=== PATIENT | female | born 1965 | race Caucasian/White ===

== ENCOUNTER 2020-04-10 14:22 | Inpatient (IN) | payer MEDICARE, OTHER ==
--- NOTE | 2020-04-10 15:43 | ED ---
General Adult HPI - General Chief complaint: Shortness of Breath Stated complaint: SOB,Sent by for pulmonary embolism Time Seen by Provider: 04/10/20 15:29 Source: patient Mode of arrival: ambulatory Limitations: no limitations - History of Present Illness Initial comments: Dictation was produced using [employer] dictation software. please excuse any grammatical, word or spelling errors. This patient was cared for during a federal and state declared state of emergency secondary to Covid 19 Chief Complaint: 54-year-old female sent by her primary care physician for abnormal chest x-ray History of Present Illness: Is 54-year-old female she has past medical history of breast cancer in remission, COPD and diabetes. Patient states she went to her primary care physician Dr. Bishop today for a routine checkup. Patient was complaining of shortness of breath however Dr. Young ordered a chest x- ray. X-ray was found to show complete opacification of the left hemithorax according to the patient. She was instructed to come to the emergency department. Patient states she's been short of breath for the last 2 months. She has no history of pleural effusions. She denies any cough. She states that she does feel more short of breath especially with exertion. The ROS documented in this emergency department record has been reviewed and confirmed by me. Those systems with pertinent positive or negative responses have been documented in the HPI. All other systems are other negative and/or noncontributory. PHYSICAL EXAM: General Impression: Alert and oriented x3, not in acute distress HEENT: Normocephalic atraumatic, extra-ocular movements intact, pupils equal and reactive to light bilaterally, mucous membranes moist. Cardiovascular: Heart regular rate and rhythm Chest: Able to complete full sentences, no retractions, no tachypnea, nondistended, no breath sounds on the left Abdomen: abdomen soft, non-tender, non-distended, no organomegaly Musculoskeletal: Pulses present and equal in all extremities, no peripheral edema Motor: no focal deficits noted Neurological: CN II-XII grossly intact, no focal motor or sensory deficits noted Skin: Intact with no visualized rashes Psych: Normal affect and mood ED course: 84-year-old feel presents with what sounds like chronic dyspnea on exertion and pleural effusion of the left hemithorax. Signs upon arrival are within acceptable limits. Patient has a history of breast cancer. There is concern of malignant pleural effusion. She has not had any cancer treatment in several years. Laboratory evaluation obtained. CBC is unremarkable. Coag panel is negative. Metabolic panel shows potassium 5.4 with slight hemolysis. Rest metabolic panel is negative. Chest x-ray shows large left pleural effusion. This is likely chronic considering patient is not in respiratory distress. Patient be admitted. Discussed patient case with Dr. Ruiz who is willing to accept patients care for some physician group. Pulmonology consulted for evaluation and likely diagnostic thoracentesis. EKG interpretation: Ventricular rate 106, sinus tachycardia, IN interval 142, QRS 86, QTC 435. No IN prolongation, no QTC prolongation, no ST or T-wave changes noted. Overall, this EKG is unremarkable - Related Data Allergies Allergy/AdvReac Type Severity Reaction Status Date / Time No Known Allergies Allergy Verified 04/10/20 14:55 Review of Systems ROS Statement: Those systems with pertinent positive or pertinent negative responses have been documented in the HPI. ROS Other: All systems not noted in ROS Statement are negative. Past Medical History Past Medical History: COPD, Diabetes Mellitus Additional Past Medical History / Comment(s): lymphedema, breast cancer History of Any Multi-Drug Resistant Organisms: None Reported Additional Past Surgical History / Comment(s): alicia masectomy Past Psychological History: No Psychological Hx Reported Smoking Status: Former smoker Past Alcohol Use History: None Reported Past Drug Use History: Marijuana General Exam Limitations: no limitations Course Vital Signs 04/10/20 04/10/20 14:50 16:08 Temperature 99.2 F Pulse Rate 109 H Respiratory 22 20 Rate Blood Pressure 170/77 O2 Sat by Pulse 93 L Oximetry Medical Decision Making - Lab Data Result diagrams: 04/10/20 15:55 04/10/20 15:55 Lab Results 04/10/20 04/10/20 04/10/20 Range/Units 15:55 15:55 15:55 WBC 10.6 (3.8-10.6) k/uL RBC 4.18 (3.80-5.40) m/uL Hgb 11.7 (11.4-16.0) gm/dL Hct 36.5 (34.0-46.0) % MCV 87.4 (80.0-100.0) fL MCH 28.0 (25.0-35.0) pg MCHC 32.0 (31.0-37.0) g/dL RDW 13.1 (11.5-15.5) % Plt Count 329 (150-450) k/uL Neutrophils % 73 % Lymphocytes % 16 % Monocytes % 7 % Eosinophils % 2 % Basophils % 0 % Neutrophils # 7.8 H (1.3-7.7) k/uL Lymphocytes # 1.7 (1.0-4.8) k/uL Monocytes # 0.8 (0-1.0) k/uL Eosinophils # 0.2 (0-0.7) k/uL Basophils # 0.0 (0-0.2) k/uL Hypochromasia Moderate PT 9.7 (9.0-12.0) sec INR 0.9 (<1.2) APTT 22.0 (22.0-30.0) sec Sodium 132 L (137-145) mmol/L Potassium 5.4 H (3.5-5.1) mmol/L Chloride 102 (98-107) mmol/L Carbon Dioxide 22 (22-30) mmol/L Anion Gap 8 mmol/L BUN 12 (7-17) mg/dL Creatinine 0.57 (0.52-1.04) mg/dL Est GFR (CKD-EPI)AfAm >90 (>60 ml/min/1.73 sqM) Est GFR (CKD-EPI)NonAf >90 (>60 ml/min/1.73 sqM) Glucose 158 H (74-99) mg/dL Calcium 9.7 (8.4-10.2) mg/dL Total Bilirubin 0.8 (0.2-1.3) mg/dL AST 30 (14-36) U/L ALT 19 (4-34) U/L Alkaline Phosphatase 84 (38-126) U/L Total Protein 7.5 (6.3-8.2) g/dL Albumin 3.8 (3.5-5.0) g/dL Disposition Clinical Impression: Pleural effusion Disposition: ADMITTED IP TO THIS HOSP Condition: Fair Referrals: Wendy Bishop MD [Primary Care Provider] - 1-2 days Decision Time: 17:16
--- NOTE | 2020-04-10 16:17 | XR ---
EXAMINATION TYPE: XR chest 2V DATE OF EXAM: 04/10/2020 COMPARISON: Prior chest x-ray 02/16/2010 HISTORY: Dyspnea TECHNIQUE: Frontal and lateral views of the chest are obtained. FINDINGS: This been interval near complete opacification of the left hemithorax. Patient is rotated. No evident pneumothorax. Heart is obscured. IMPRESSION: Large left effusion, follow-up recommended to exclude underlying mass.
[2020-04-10 16:21] LABS: Basophils % (A) 0 %; Eosinophils # (A) 0.2 k/uL (0-0.7); Eosinophils % (A) 2 %; HCT 36.5 % (34.0-46.0); HGB 11.7 gm/dL (11.4-16.0); Hypochromasia Moderate; Lymphocytes # (A) 1.7 k/uL (1.0-4.8); Lymphocytes % (A) 16 %; MCV 87.4 fL (80.0-100.0); Mean Platelet Volume 8.8; Monocytes # (A) 0.8 k/uL (0-1.0); Monocytes % (A) 7 %; Neutrophils # (A) 7.8 k/uL (1.3-7.7); Neutrophils % (A) 73 %; Platelet Count 329 k/uL (150-450); RBC 4.18 m/uL (3.80-5.40); RDW 13.1 % (11.5-15.5); WBC 10.6 k/uL (3.8-10.6)
[2020-04-10 16:35] LABS: INR 0.9 (<1.2); Prothrombin Time 9.7 sec (9.0-12.0)
[2020-04-10 16:45] LABS: ALT 19 U/L (4-34); AST 30 U/L (14-36); African American GFR (CKD) >90 (>60 ml/min/1.73 sqM); Albumin 3.8 g/dL (3.5-5.0); Alkaline Phosphatase 84 U/L (38-126); Anion Gap 8 mmol/L; Blood Urea Nitrogen 12 mg/dL (7-17); Calcium 9.7 mg/dL (8.4-10.2); Carbon Dioxide 22 mmol/L (22-30); Chloride 102 mmol/L (98-107); Glucose 158 mg/dL (74-99); Non-African American GFR(CKD) >90 (>60 ml/min/1.73 sqM); Potassium 5.4 mmol/L (3.5-5.1); Sodium 132 mmol/L (137-145); Total Bilirubin 0.8 mg/dL (0.2-1.3); Total Protein 7.5 g/dL (6.3-8.2)
[2020-04-10] MEDS ORDERED: NALOXONE 0.4 MG/ML 1 ML VIAL IV PRN (17:17)
[2020-04-10] MEDS: ACETAMINOPHEN TAB 325 MG TAB PO PRN (18:02)
[2020-04-10] MEDS ORDERED: IPRATROPIUM-ALBUTEROL 3 ML NEB INHALATION PRN (19:16)
--- NOTE | 2020-04-10 19:19 | P.HPIM ---
History of Present Illness H&P Date: 04/10/20 Chief Complaint: Shortness of breath 54-year-old female with PMH of COPD, depression, diabetes mellitus, hypertension, history of breast cancer in 2007 with bilateral masectomy and left lymphectomy presents the shortness of breath. Patient reports shortness of breath is progressively getting worse over the past 2 months. Patient initially thought this was related to COPD exacerbation. She went to go see her PCP ordered a chest x-ray which showed white out of the left lung. This prompted patient to come to the ED. Patient reports seeing her oncologist 8 months ago. Patient reports a history of smoking but quit in 2007 after her diagnosis of breast cancer. She denies any headache, lower extremity edema, nausea or vomiting, fever or chills, cough, chest pain, palpitations, changes in urination or bowel habits. No changes in appetite or weight. She denies any dizziness, numbness/weakness testing of the extremities. In the ED, she was tachycardic with a pulse of 107 with O2 saturation of 90% on room air. CBC was benign. Coagulation panel was negative. CMP showed sodium 132, potassium of 5.4 and glucose of 158. Chest x-ray showed large left effusion. Patient is admitted for pleural effusion with pulmonology on consult. Review of Systems Pertinent positives and negatives as discussed in HPI, a complete review of systems was performed and all other systems are negative. Past Medical History Past Medical History: COPD, Diabetes Mellitus Additional Past Medical History / Comment(s): lymphedema, breast cancer History of Any Multi-Drug Resistant Organisms: None Reported Additional Past Surgical History / Comment(s): alicia masectomy Past Psychological History: No Psychological Hx Reported Smoking Status: Former smoker Past Alcohol Use History: None Reported Past Drug Use History: Marijuana Medications and Allergies Home Medications Medication Instructions Recorded Confirmed Type Albuterol Sulfate [Ventolin HFA] 2 puff INHALATION RT-Q4H PRN 04/10/20 04/10/20 History Atorvastatin Calcium [Lipitor] 20 mg PO HS 04/10/20 04/10/20 History Citalopram Hydrobromide [CeleXA] 20 mg PO HS 04/10/20 04/10/20 History Diazepam [Valium] 5 mg PO HS PRN 04/10/20 04/10/20 History Ergocalciferol (Vitamin D2) 50,000 unit PO MAXWELL 04/10/20 04/10/20 History [Drisdol] Insulin Detemir (Levemir) [Levemir] 85 unit SQ HS 04/10/20 04/10/20 History Ipratropium/Albuter 20-100Mcg 1 puff INHALATION RT-QID PRN 04/10/20 04/10/20 History [Combivent Respimat 20-100Mcg Inhaler] Lisinopril [Prinivil] 10 mg PO HS 04/10/20 04/10/20 History Naproxen [Naprosyn] 500 mg PO BID PRN 04/10/20 04/10/20 History Nystatin 100,000 Unit/gm Oint 1 applic TOPICAL TID PRN 04/10/20 04/10/20 History [Mycostatin Oint] Omeprazole 20 mg PO HS 04/10/20 04/10/20 History Triamcinolone 0.1% Cream [Kenalog 1 applicatio TOPICAL TID PRN 04/10/20 04/10/20 History 0.1% Cream] metFORMIN HCL [Glucophage] 1,000 mg PO BID-W/MEALS 04/10/20 04/10/20 History Allergies Allergy/AdvReac Type Severity Reaction Status Date / Time No Known Allergies Allergy Verified 04/10/20 17:51 Physical Exam Vitals: Vital Signs Temp Pulse Resp BP Pulse Ox 04/10/20 18:00 106 H 22 121/71 93 L 04/10/20 17:00 107 H 23 125/65 90 L 04/10/20 16:08 20 04/10/20 16:00 101 H 20 118/77 93 L 04/10/20 15:58 12 92 L 04/10/20 14:50 99.2 F 109 H 22 170/77 93 L Intake and Output 04/10/20 04/10/20 04/10/20 06:59 14:59 22:59 Other: Weight 132.903 kg General: [non toxic], [no distress], [appears at stated age] Derm: [warm], [dry] Head: [atraumatic], [normocephalic], [symmetric] Eyes: [EOMI], [no lid lag], [anicteric sclera] Mouth: [no lip lesion], [mucus membranes moist] Cardiovascular: [S1S2 reg], [tachycardic], [positive DP pulse bilateral], Lungs: [Decreased BS L side], [no rhonchi, no rales] , [no accessory muscle use] Abdominal: [soft], [ nontender to palpation], [no guarding], [no appreciable organomegaly] Ext: [no gross muscle atrophy], [no edema], [no contractures] Neuro: [ CN II-XI grossly intact], [no focal neuro deficits] Psych: [Alert], [oriented], [appropriate affect] Results CBC & Chem 7: 04/10/20 15:55 04/10/20 15:55 Labs: Abnormal Lab Results - Last 24 Hours (Table) 04/10/20 04/10/20 Range/Units 15:55 15:55 Neutrophils # 7.8 H (1.3-7.7) k/uL Sodium 132 L (137-145) mmol/L Potassium 5.4 H (3.5-5.1) mmol/L Glucose 158 H (74-99) mg/dL Assessment and Plan Assessment: Acute hypoxic respiratory failure likely related to left large pleural effusion Hyperkalemia Stable COPD History of breast cancer Diabetes mellitus Hypertension Chest x-ray shows large left-sided pleural effusion. Given her history of breast cancer, concerning for recurrence. Plans to consult pulmonology for thoracentesis. Supplemental O2 per NC to maintain O2 saturation greater than 92%. Telemetry monitoring. Her potassium is 5.4. Hemolyzed specimen. Plans to repeat BMP tomorrow zac thompson. Hold lisinopril. Stable. DuoNeb as needed for shortness of breath or wheezing. Patient follows up with oncology in the outpatient setting. Point of care glucose 158. Start insulin sliding scale. Regular Accu-Cheks. Hypoglycemic precautions. BP 121/71. Monitor vitals, adjust medications as necessary. DVT prophylaxis: [Heparin] Discussed with: [Patient] Anticipated discharge: [2 days] Anticipated discharge place: [home] A total of [35] minutes was spent on the care of this complex patient more than 50% of the time was spent in counseling and care coordination. Decision maker = Boom (son) Patient would like to be FULL CODE.
[2020-04-10] MEDS ORDERED: lisinopriL 10 MG TAB PO SCH (21:00)
[2020-04-10 21:09] LABS: Glucose,Whole Blood 151 mg/dL (75-99)
[2020-04-10] MEDS: PANTOPRAZOLE 40 MG TABLET PO SCH (21:40)
[2020-04-10] MEDS: CITALOPRAM HYDROBROMIDE 20 MG TAB PO SCH (21:40)
[2020-04-10] MEDS: ATORVASTATIN 20 MG TAB PO SCH (21:40)
[2020-04-10] MEDS: INSULIN ASPART (NovoLOG) 100 UNIT/ML VIAL SQ SCH (21:40)
[2020-04-10] MEDS: HEPARIN SODIUM,PORCINE 5,000 UNIT/ML 1 ML VIAL SQ SCH (21:40)
[2020-04-10] MEDS: SODIUM CHLORIDE 0.9% 1,000 ML IV SCH (21:41)
[2020-04-11] MEDS: diazePAM 5 MG TAB PO PRN ×2 (01:44→21:10)
[2020-04-11 07:20] LABS: Glucose,Whole Blood 195 mg/dL (75-99)
[2020-04-11] MEDS: INSULIN ASPART (NovoLOG) 100 UNIT/ML VIAL SQ SCH ×4 (07:45→21:22)
[2020-04-11 08:16] LABS: African American GFR (CKD) >90 (>60 ml/min/1.73 sqM); Anion Gap 7 mmol/L; Blood Urea Nitrogen 9 mg/dL (7-17); Carbon Dioxide 26 mmol/L (22-30); Chloride 102 mmol/L (98-107); Glucose 183 mg/dL (74-99); Non-African American GFR(CKD) >90 (>60 ml/min/1.73 sqM); Potassium 5.1 mmol/L (3.5-5.1); Sodium 135 mmol/L (137-145)
[2020-04-11] MEDS: HEPARIN SODIUM,PORCINE 5,000 UNIT/ML 1 ML VIAL SQ SCH ×2 (10:43→21:09)
--- NOTE | 2020-04-11 11:01 | ECHOF ---
Referral Reason:pleural effusion MEASUREMENTS -------- HEIGHT: 177.8 cm WEIGHT: 132.9 kg BP: IVSd: 1.4 cm (0.6 - 1.1) LVIDd: 3.7 cm (3.9 - 5.3) LVPWd: 1.5 cm (0.6 - 1.1) IVSs: 2.1 cm LVIDs: 1.0 cm LVPWs: 1.3 cm Ao Diam: 2.4 cm (2.0 - 3.7) AV Cusp: 1.5 cm (1.5 - 2.6) LA Diam: 3.1 cm (2.7 - 3.8) MV EXCURSION: 12.364 mm (> 18.000) MV EF SLOPE: 42 mm/s (70 - 150) EPSS: 0.9 cm MV E Kunal: 1.05 m/s MV DecT: 129 ms MV A Kunal: 1.45 m/s MV E/A Ratio: 0.73 RAP: 15.00 mmHg RVSP: 20.99 mmHg FINDINGS -------- Resting tachycardia (HR>100bpm). This was a technically difficult study with suboptimal views. Poor apicals. Study taken from [facility]. The left ventricular size is normal. There is moderate concentric left ventricular hypertrophy. O verall left ventricular systolic function is normal with, an EF between 60 - 65 %. The right ventricle is normal in size. The left atrial size is normal. The right atrial size is normal. Interatrial and interventricular septum intact. The aortic valve is trileaflet and appears structurally normal. The mitral valve is normal. There is trace mitral regurgitation. The tricuspid valve appears structurally normal. Mild tricuspid regurgitation present. Right vent ricular systolic pressure is normal at < 35 mmHg. There is no pulmonic regurgitation present. The aortic root size is normal. The inferior vena cava is mildly dilated. There is no pericardial effusion. CONCLUSIONS -------- 1. There is moderate concentric left ventricular hypertrophy. 2. Overall left ventricular systolic function is normal with, an EF between 60 - 65 %. 3. There is trace mitral regurgitation. 4. Mild tricuspid regurgitation present. LEAD ELECTRICAL ENGINEER: Tameka Yeager RDCS
[2020-04-11 11:29] LABS: Glucose,Whole Blood 199 mg/dL (75-99)
--- NOTE | 2020-04-11 11:40 | US ---
EXAMINATION TYPE: US chest DATE OF EXAM: 04/11/2020 COMPARISON: X ray CLINICAL HISTORY: left pleural effusion. TECHNIQUE: Targeted ultrasound of the posterior bilateral chest. EXAM MEASUREMENTS: Right Pleural Effusion pocket size: no fluid seen Left Pleural Effusion pocket size: 13.5 cm A/P Left skin surface to fluid distance: 5.9 cm Left side was marked for possible thoracentesis outside the dept. Pulmonologists are able to review the images in the patient?s EMR. IMPRESSIONS: Left pleural effusion
--- NOTE | 2020-04-11 14:45 | P.PCN ---
Date of Procedure: 04/11/20 Preoperative Diagnosis: left pleural effusion Procedure(s) Performed: thoracentesis Anesthesia: local Estimated Blood Loss (ml): 4 Pathology: other (2.3 liters christy fluid)
--- NOTE | 2020-04-11 15:17 | XR ---
EXAMINATION TYPE: XR chest 2V DATE OF EXAM: 04/11/2020 CLINICAL HISTORY: Status post left thoracentesis TECHNIQUE: Frontal and lateral views of the chest are obtained. COMPARISON: Chest regressed 04/10/2020 FINDINGS: There is mild interval decrease of large volume left pleural effusion and near complete opa cification of the left hemithorax. Mildly improved aeration of the left upper lung. No mediastinal sh ift. No pneumothorax. IMPRESSION: No pneumothorax status post left thoracentesis. Large volume residual left pleural effusi on.
[2020-04-11] MEDS: ACETAMINOPHEN TAB 325 MG TAB PO PRN (15:40)
--- NOTE | 2020-04-11 15:48 | P.PN ---
Subjective Progress Note Date: 04/11/20 Principal diagnosis: Left pleural effusion Patient was seen and examined. No acute events overnight. Patient reports no changes in her condition since admission. She continues to complain of shortness of breath. She denies any chest pain or palpitations. No nausea or vomiting. No fever or chills. Objective - Vital Signs Vital signs: Vital Signs Temp 99.6 F 04/11/20 15:34 Pulse 99 04/11/20 15:34 Resp 29 H 04/11/20 15:34 BP 103/72 04/11/20 15:34 Pulse Ox 93 L 04/11/20 15:34 Intake & Output 04/10/20 04/11/20 04/11/20 18:59 06:59 18:59 Weight 132.903 kg 132.903 kg Other: Voiding Method Toilet # Voids 1 3 - Exam General: [non toxic], [no distress], [appears at stated age] Derm: [warm], [dry] Head: [atraumatic], [normocephalic], [symmetric] Eyes: [EOMI], [no lid lag], [anicteric sclera] Mouth: [no lip lesion], [mucus membranes moist] Cardiovascular: [S1S2 reg], [tachycardic], [positive DP pulse bilateral], Lungs: [Decreased BS L side], [no rhonchi, no rales] , [no accessory muscle use] Abdominal: [soft], [ nontender to palpation], [no guarding], [no appreciable organomegaly] Ext: [no gross muscle atrophy], [no edema], [no contractures] Neuro: [no focal neuro deficits] Psych: [Alert], [oriented], [appropriate affect] - Labs CBC & Chem 7: 04/10/20 15:55 04/11/20 06:54 Labs: Abnormal Lab Results - Last 24 Hours (Table) 04/10/20 04/10/20 04/10/20 Range/Units 15:55 15:55 21:08 Neutrophils # 7.8 H (1.3-7.7) k/uL Sodium 132 L (137-145) mmol/L Potassium 5.4 H (3.5-5.1) mmol/L Glucose 158 H (74-99) mg/dL POC Glucose (mg/dL) 151 H (75-99) mg/dL 04/11/20 04/11/20 04/11/20 Range/Units 06:54 07:19 11:28 Neutrophils # (1.3-7.7) k/uL Sodium 135 L (137-145) mmol/L Potassium (3.5-5.1) mmol/L Glucose 183 H (74-99) mg/dL POC Glucose (mg/dL) 195 H 199 H (75-99) mg/dL Assessment and Plan Assessment: Acute hypoxic respiratory failure likely related to left large pleural effusion Stable COPD History of breast cancer Diabetes mellitus Hypertension Morbid Obesity Resolved: Hyperkalemia Chest x-ray shows large left-sided pleural effusion. Given her history of breast cancer, concerning for recurrence. Echocardiogram shows EF 60-65% with moderate concentric LVH. Pulmonology consulted, recommends IR consult for thoracentesis. Send pleural fluid for cytology and culture. Supplemental O2 per NC to maintain O2 saturation greater than 92%. Telemetry monitoring. Stable. DuoNeb as needed for shortness of breath or wheezing. Patient follows up with oncology in the outpatient setting. Point of care glucose 199. Start insulin sliding scale. Regular Accu-Cheks. Hypoglycemic precautions. BP 103/72. Monitor vitals, adjust medications as necessary. BMI 42. Patient would benefit from a structured weight loss program. [Patient admitted for left large pleural effusion. Pulmonology recommends IR consultation for thoracentesis. Send pleural fluid for cytology and culture. Patient is pending clinical improvement. Likely DC in 1-2 days.] Decision maker = Boom (son) Patient would like to be FULL CODE.
--- NOTE | 2020-04-11 16:15 | US ---
EXAMINATION TYPE: US thoracentesis DATE OF EXAM: 04/11/2020 COMPARISON: NONE HISTORY: Pleural effusion. FINDINGS: Maximal barrier technique was utilized. The skin overlying a suitable pocket of fluid was localized and the overlying skin prepped and draped. Lidocaine was used for local anesthesia. Ultras ound was used with sterile technique. A 5 Armenian catheter over guide needle was advanced into the pl eural fluid collection using ultrasound guidance and the catheter advanced, needle removed. Approxim ately 2.3 liter(s) of christy fluid was removed. Catheter was withdrawn and hemostasis achieved. Ther e is no immediate complication. The patient discharged in stable condition without complication. IMPRESSION: STATUS POST ULTRASOUND GUIDED THORACENTESIS, POST PROCEDURE CHEST X-RAY PENDING. THIS RI OCEDURE WAS PERFORMED BY THE UNDERSIGNED.
[2020-04-11 16:25] LABS: Glucose,Whole Blood 203 mg/dL (75-99)
--- NOTE | 2020-04-11 17:02 | CONS ---
CONSULTATION PULMONARY/CRITICAL CARE CONSULTATION: DATE OF SERVICE: 04/11/2020 This is a 54-year-old female whom we were asked to see in consultation for shortness of breath and an abnormal chest x-ray which apparently showed complete opacification of the left hemithorax with a large pleural effusion. This patient apparently sees Dr. Bishop as her primary. She has a history of breast cancer, apparently in remission, as well as COPD from smoking and diabetes. She went to her primary doctor for evaluation. She was short of breath and Dr. Bishop ordered a chest x-ray which apparently was found to show complete opacification of the left hemithorax. Ultrasound- guided thoracentesis was recommended. We were asked to see her. Because of her body habitus, I believe it might be safer for [facility] to do her thoracentesis, given the fact that they can have ultrasound there at the bedside and they have longer insertion needles into the left pleural space. She has not been feeling well and has been short of breath for at least 2 months, getting progressively worse. She denies a previous history of that. Other than the shortness of breath, she really denies any other complaints. She denies any chest pain, chest pressure, fever, chills, cough, phlegm production, GI or complaints. HOME MEDICATIONS: Her home medications include omeprazole, vitamin D2, albuterol inhaler, Kenalog cream, nystatin, metformin, naproxen, lisinopril, insulin, diazepam, Combivent inhaler, citalopram and Lipitor. She is also on Qvar. She does not see a band tier for her COPD. ALLERGIES: DENIED. MEDICAL HISTORY: Her medical history is apparently positive for breast cancer, COPD, diabetes. She also has history of lymphedema involving the left upper extremity and the diagnosis of breast cancer. SURGICAL HISTORY: Surgical history includes bilateral mastectomy. SOCIAL HISTORY: Positive for previous tobacco use. She does not smoke currently. She denies any alcohol use. She does smoke marijuana. FAMILY HISTORY: Noncontributory. Both mother and father were healthy. REVIEW OF SYSTEMS: CONSTITUTIONAL: Negative. NEUROLOGIC: Negative. HEENT: Negative. CARDIOVASCULAR: Negative. PULMONARY: Shortness of breath for more than 2 months, progressive in nature. GI: Negative. : Negative. RHEUMATOLOGIC: Negative. IMMUNOLOGIC: Negative. ENDOCRINOLOGIC: Negative. DERMATOLOGIC: Negative. PHYSICAL EXAMINATION: VITAL SIGNS: Current vital signs are reviewed. Temperature is 98.6, heart rate 100, respiratory rate 18, blood pressure 118/75, mean 89, room-air saturation 95%. GENERAL APPEARANCE: She appears in no acute distress. HEENT: Examination is grossly unremarkable. NECK: Supple. Full range of motion. No adenopathy. Neck veins are flat. CARDIOVASCULAR: Examination reveals regular rhythm and rate. Heart rate about 100 beats per minute. She appears to be in sinus rhythm. No murmur. LUNGS: Lungs reveal complete absence of breath sounds in the left chest. There is dullness at the left chest. The right chest is clear. No wheezes, rhonchi or crackles on the right side. ABDOMEN: Obese. Bowel sounds are heard. EXTREMITIES: Intact. No edema. SKIN: Without rash. NEUROLOGIC: Neurologic examination is brief but nonfocal. LABS: Reviewed. White count 10.6, hemoglobin 11.7, hematocrit 36.5, platelet count 329,000. PT and INR and PTT all normal. Sodium 135, potassium 5.1, chloride 102, CO2 26. Anion gap is 7. BUN and creatinine were 9 and 0.59. The rest of the labs look okay. Microbiology is pending. Chest x-ray shows near-complete opacification of the left chest. There may be an underlying mass. Chest ultrasound shows a large 13.5 cm pocket of fluid in the left chest. Dr. Galindo from [facility] did a thoracentesis and removed 2.3 L from the left pleural space. It was sent for analysis, including cytology, chemistry and microbiology. Current medications are reviewed and include basic IV, Protonix, Narcan, DuoNeb, insulin, subcutaneous heparin, Valium, citalopram, Lipitor and Tylenol. ASSESSMENT: 1. Left-sided pleural effusion, present for at least a couple of months and maybe longer. Rule out occult malignancy. Prime etiologies would include lung and breast cancer. 2. History of chronic obstructive pulmonary disease, currently on Combivent and Qvar. 3. Obesity. 4. Diabetes. 5. History of breast cancer, status post bilateral mastectomy and left-sided lymph node dissection. PLAN: Currently, the patient has had thoracentesis by Dr. Galindo in [facility], who removed 2.3 L of fluid. It was sent for analysis, including cytology, chemistry and microbiology. Additional recommendations and suggestions are forthcoming. Should a mass be present, a follow-up CT scan might be in order. No additional recommendations are made. Will continue to follow. Prognosis is guarded. MMODL / IJN: [id number] /
[2020-04-11] MEDS: SODIUM CHLORIDE 0.9% 1,000 ML IV SCH (17:11)
[2020-04-11 20:15] LABS: Appearance,BF Cloudy; Color,BF Orange; Nucleated Cells, Body Fluid 775 /uL
[2020-04-11 20:16] LABS: RBC, Body Fluid 9875 /uL
[2020-04-11 20:53] LABS: Mononuclear WBC,Body Fluid 88 %; Polynuclear WBC,Body Fluid 12 %
[2020-04-11] MEDS: CITALOPRAM HYDROBROMIDE 20 MG TAB PO SCH (21:10)
[2020-04-11] MEDS: PANTOPRAZOLE 40 MG TABLET PO SCH (21:10)
[2020-04-11] MEDS: ATORVASTATIN 20 MG TAB PO SCH (21:10)
[2020-04-11 21:14] LABS: Glucose,Whole Blood 222 mg/dL (75-99)
[2020-04-12 03:46] LABS: Glucose, BF Source Pleural Fluid; Glucose, Body Fluid 148 mg/dL; LDH, Body Fluid Source Pleural Fluid
[2020-04-12 07:21] LABS: Glucose,Whole Blood 186 mg/dL (75-99)
[2020-04-12 07:25] LABS: Basophils % (A) 0 %; Eosinophils # (A) 0.1 k/uL (0-0.7); Eosinophils % (A) 1 %; HGB 11.7 gm/dL (11.4-16.0); Hypochromasia Moderate; Lymphocytes # (A) 1.9 k/uL (1.0-4.8); Lymphocytes % (A) 24 %; MCH 27.9 pg (25.0-35.0); MCHC 31.6 g/dL (31.0-37.0); MCV 88.2 fL (80.0-100.0); Mean Platelet Volume 8.6; Monocytes # (A) 0.6 k/uL (0-1.0); Monocytes % (A) 8 %; Neutrophils # (A) 5.2 k/uL (1.3-7.7); Neutrophils % (A) 65 %; Platelet Count 321 k/uL (150-450); RDW 13.2 % (11.5-15.5); WBC 7.9 k/uL (3.8-10.6)
[2020-04-12 07:34] VITALS: BP 128/80; RESP 18; TEMP 99.2
[2020-04-12 07:37] LABS: African American GFR (CKD) >90 (>60 ml/min/1.73 sqM); Anion Gap 7 mmol/L; Blood Urea Nitrogen 10 mg/dL (7-17); Calcium 9.8 mg/dL (8.4-10.2); Carbon Dioxide 26 mmol/L (22-30); Chloride 101 mmol/L (98-107); Glucose 183 mg/dL (74-99); Non-African American GFR(CKD) >90 (>60 ml/min/1.73 sqM); Sodium 134 mmol/L (137-145)
[2020-04-12] MEDS: INSULIN ASPART (NovoLOG) 100 UNIT/ML VIAL SQ SCH ×2 (08:59→12:31)
[2020-04-12] MEDS: HEPARIN SODIUM,PORCINE 5,000 UNIT/ML 1 ML VIAL SQ SCH (09:03)
[2020-04-12 11:31] LABS: Glucose,Whole Blood 177 mg/dL (75-99)
--- NOTE | 2020-04-12 11:52 | P.PN ---
Subjective Progress Note Date: 04/12/20 Principal diagnosis: Large left-sided pleural effusion status post left thoracentesis with removal of 2.3 L of pleural fluid On 04/12/2020 patient seen in follow-up on a general medical surgical floor, she is status post left sided thoracentesis by interventional radiology and r emoval of 2.3 L of fluid, which is exudative in nature, cytology is pending, cultures pending, Gram stain showed no organisms. Suspect malignant etiology based on the pleural fluid analysis. Patient states she is definitely breathing easier today, room air pulse ox is 94%, hemodynamically she is stable, low-grade fever, with a temp of 99.2F, no cough or congestion, breathing appears to be comfortable, follow-up chest x-ray was obtained yesterday following the procedure showing no pneumothorax status post left thoracentesis, and large volume residual left pleural effusion. Patient will likely need a repeat left- sided thoracentesis in the next several days, otherwise she has remained clini leann stable, she is on room air, today's labs have been reviewed, CBC is within normal limits, sodium is 134, the rest of the electrolytes and renal profile are unremarkable. Objective - Vital Signs Vital signs: Vital Signs Temp 99.2 F 04/12/20 07:32 Pulse 99 04/12/20 08:00 Resp 18 04/12/20 08:00 BP 128/80 04/12/20 07:32 Pulse Ox 94 L 04/12/20 07:32 Intake & Output 04/11/20 04/12/20 04/12/20 18:59 06:59 18:59 Other: Voiding Method Toilet Toilet # Voids 3 - Exam GENERAL EXAM: Alert, very pleasant, 54-year-old white female on room air, with pulse ox of 94% comfortable in no apparent distress. HEAD: Normocephalic/atraumatic. EYES: Normal reaction of pupils, equal size. Conjunctiva pink, sclera white. NOSE: Clear with pink turbinates. THROAT: No erythema or exudates. NECK: No masses, no JVD, no thyroid enlargement, no adenopathy. CHEST: No chest wall deformity. Symmetrical expansion. LUNGS: Diminished breath sounds over left lower and left middle lobe with no crackles, wheeze, rhonchi or dullness. CVS: Regular rate and rhythm, normal S1 and S2, no gallops, no murmurs, no rubs ABDOMEN: Soft, nontender. No hepatosplenomegaly, normal bowel sounds, no guarding or rigidity. EXTREMITIES: No clubbing, no edema, no cyanosis, 2+ pulses and upper and lower extremities. MUSCULOSKELETAL: Muscle strength and tone normal. SPINE: No scoliosis or deformity SKIN: No rashes CENTRAL NERVOUS SYSTEM: Alert and oriented -3. No focal deficits, tone is normal in all 4 extremities. PSYCHIATRIC: Alert and oriented -3. Appropriate affect. Intact judgment and insight. - Labs CBC & Chem 7: 04/12/20 06:49 04/12/20 06:44 Labs: Abnormal Lab Results - Last 24 Hours (Table) 04/11/20 04/11/20 04/12/20 Range/Units 16:23 21:13 06:44 Sodium 134 L (137-145) mmol/L Glucose 183 H (74-99) mg/dL POC Glucose (mg/dL) 203 H 222 H (75-99) mg/dL 04/12/20 04/12/20 Range/Units 07:19 11:30 Sodium (137-145) mmol/L Glucose (74-99) mg/dL POC Glucose (mg/dL) 186 H 177 H (75-99) mg/dL Microbiology - Last 24 Hours (Table) 04/11/20 14:30 Gram Stain - Preliminary Pleural Fluid Body Fluid Culture - Preliminary 04/11/20 14:30 Anaerobic Culture - Preliminary Pleural Fluid 04/11/20 14:30 Acid Fast Bacilli Culture - Preliminary Pleural Fluid 04/11/20 14:30 Fungal Culture - Preliminary Pleural Fluid Assessment and Plan Plan: Assessment: #1. Large left-sided pleural effusion, present for at least a couple of months, rule out occult malignancy, with possible etiologies including lung and breast cancer, status post left-sided thoracentesis on 04/11/2020 and removal of 2.3 L of pleural fluid, which was exudative in nature, not suspicious for infectious etiology, awaiting cytology results #2. Residual large left-sided pleural effusion, will need close follow-up and we'll schedule the patient for outpatient left-sided thoracentesis by interventional radiology #3. History of chronic obstructive pulmonary disease, obtained on Combivent and Qvar #4. History of breast cancer, status post bilateral mastectomy and left-sided lymph node dissection #5. Morbid obesity #6. Diabetes Plan: Patient is still has a large residual left-sided pleural effusion, she had a large amount of fluid removed yesterday from the left lung in the order of 2.3 L, which is exudative in nature not suspicious for infectious etiology, suspect malignant etiology. Cytology is pending. Breathing has improved, patient is on room air, she will need close outpatient follow-up, and we wrote a order for outpatient ultrasound-guided thoracentesis on the left side on Thursday by interventional radiology, she will need to follow up with Dr. Powers in the office next week regarding the results of the left-sided thoracentesis. No acute issues overnight, vital signs are stable, increase activity as tolerated, she can considered for discharge home today with close outpatient follow-up I performed a history & physical examination of the patient and discussed their management with my nurse practitioner, Nathaly Danielle. I reviewed the nurse practitioner's note and agree with the documented findings and plan of care. Lung sounds are positive for diminished breath sounds at the left base The findings and the impression was discussed with the patient. I attest to the documentation by the nurse practitioner. Time with Patient: Less than 30
--- NOTE | 2020-04-12 12:03 | P.DS ---
Providers Date of admission: 04/10/20 17:17 Expected date of discharge: 04/12/20 Attending physician: Stalin Ruiz MD Consults: 04/10/20 15:44 Consult Physician Routine Consulting Provider: Terry Powers Consult Reason/Comments: pleural effusion Do you want consulting provider notified?: Yes Primary care physician: Wendy Bishop [facility] Hospital Course: HPI: 54-year-old female with PMH of COPD, depression, diabetes mellitus, hypertension, history of breast cancer in 2007 with bilateral masectomy and left lymphectomy presents the shortness of breath. Patient reports shortness of breath is progressively getting worse over the past 2 months. Patient initially thought this was related to COPD exacerbation. She went to go see her PCP ordered a chest x-ray which showed white out of the left lung. This prompted patient to come to the ED. Patient reports seeing her oncologist 8 months ago. Patient reports a history of smoking but quit in 2007 after her diagnosis of breast cancer. She denies any headache, lower extremity edema, nausea or vomiting, fever or chills, cough, chest pain, palpitations, changes in urination or bowel habits. No changes in appetite or weight. She denies any dizziness, numbness/weakness testing of the extremities. In the ED, she was tachycardic with a pulse of 107 with O2 saturation of 90% on room air. CBC was benign. Coagulation panel was negative. CMP showed sodium 132, potassium of 5.4 and glucose of 158. Chest x-ray showed large left effusion. Patient is admitted for pleural effusion with pulmonology on consult. hospital course and treatment: patient was admitted to the hospital with shortness of breath, she was found to haveleft-sided pleural effusion, interventional radiology and pulmonology were consulted. She underwent thoracentesis with 2.3 L of fluid removal.cytology pending. Pleural fluid likely exudate.she feels much better and breathing better. She has history of restless cancer status post bilateral mastectomy and left sided lymph node dissection. Pulmonology recommended close follow-up and repeat thoracenteses as an outpatient. Patient will be discharged home, pulmonology arranging for outpatient thoracenteses and outpatient follow-up. Diagnoses upon discharge: left-sided pleural effusion, unspecified etiology Morbid obesity history of breast cancer unspecified type Diabetes type 2 with hyperglycemia Patient Condition at Discharge: Fair Plan - Discharge Summary Discharge Rx Participant: Yes New Discharge Prescriptions: Continue Nystatin 100,000 Unit/gm Oint [Mycostatin Oint] 1 applic TOPICAL TID PRN PRN Reason: Rash metFORMIN HCL [Glucophage] 1,000 mg PO BID-W/MEALS Naproxen [Naprosyn] 500 mg PO BID PRN PRN Reason: Pain Lisinopril [Prinivil] 10 mg PO HS Insulin Detemir (Levemir) [Levemir] 85 unit SQ HS Diazepam [Valium] 5 mg PO HS PRN PRN Reason: Anxiety Ipratropium/Albuter 20-100Mcg [Combivent Respimat 20-100Mcg Inhaler] 1 puff INHALATION RT-QID PRN PRN Reason: Shortness Of Breath Citalopram Hydrobromide [CeleXA] 20 mg PO HS Atorvastatin Calcium [Lipitor] 20 mg PO HS Albuterol Sulfate [Ventolin HFA] 2 puff INHALATION RT-Q4H PRN PRN Reason: Shortness Of Breath Triamcinolone 0.1% Cream [Kenalog 0.1% Cream] 1 applicatio TOPICAL TID PRN PRN Reason: Rash Ergocalciferol (Vitamin D2) [Drisdol] 50,000 unit PO MAXWELL Omeprazole 20 mg PO HS Discharge Medication List Albuterol Sulfate [Ventolin HFA] 2 puff INHALATION RT-Q4H PRN 04/10/20 [History] Atorvastatin Calcium [Lipitor] 20 mg PO HS 04/10/20 [History] Citalopram Hydrobromide [CeleXA] 20 mg PO HS 04/10/20 [History] Diazepam [Valium] 5 mg PO HS PRN 04/10/20 [History] Ergocalciferol (Vitamin D2) [Drisdol] 50,000 unit PO MAXWELL 04/10/20 [History] Insulin Detemir (Levemir) [Levemir] 85 unit SQ HS 04/10/20 [History] Ipratropium/Albuter 20-100Mcg [Combivent Respimat 20-100Mcg Inhaler] 1 puff INHALATION RT-QID PRN 04/10/20 [History] Lisinopril [Prinivil] 10 mg PO HS 04/10/20 [History] Naproxen [Naprosyn] 500 mg PO BID PRN 04/10/20 [History] Nystatin 100,000 Unit/gm Oint [Mycostatin Oint] 1 applic TOPICAL TID PRN 04/10/20 [History] Omeprazole 20 mg PO HS 04/10/20 [History] Triamcinolone 0.1% Cream [Kenalog 0.1% Cream] 1 applicatio TOPICAL TID PRN 04/10/20 [History] metFORMIN HCL [Glucophage] 1,000 mg PO BID-W/MEALS 04/10/20 [History] Follow up Appointment(s)/Referral(s): Terry Powers DO [Doctor of Osteopathic Medicine] - 2 Weeks Wendy Bishop MD [Primary Care Provider] - 1-2 days Discharge Disposition: HOME SELF-CARE
[2020-04-12 14:02] VITALS: PULSE 94
== END 2020-04-12 13:00 | disposition home or self-care (01) | DRG 186 ==
LOC: EC 14:22 → 4SSUR 17:17
PROVIDERS: ADMIT Family Medicine; ATTEND Family Medicine
PROC: 0W9B3ZZ Drainage of Left Pleural Cavity, Percutaneous Approach (ICD-10-PCS; principal; 2020-04-11)
DX: J90 Pleural effusion, not elsewhere classified (principal); J96.01 Acute respiratory failure with hypoxia; Z68.41 Body mass index [BMI] 40.0-44.9, adult; Z11.59 Encounter for screening for other viral diseases; E66.01 Morbid (severe) obesity due to excess calories; J44.9 Chronic obstructive pulmonary disease, unspecified; Z79.4 Long term (current) use of insulin; E11.65 Type 2 diabetes mellitus with hyperglycemia; R00.0 Tachycardia, unspecified; I89.0 Lymphedema, not elsewhere classified; I10 Essential (primary) hypertension; F32.9 Major depressive disorder, single episode, unspecified; E87.5 Hyperkalemia; F41.9 Anxiety disorder, unspecified; Z79.899 Other long term (current) drug therapy; Z85.3 Personal history of malignant neoplasm of breast; Z87.891 Personal history of nicotine dependence; Z90.13 Acquired absence of bilateral breasts and nipples
CPT/HCPCS: 32555; 36415; 71046; 76604; 80048; 80053; 82945; 83615; 84157; 85025; 85610; 85730; 87070; 87075; 87102; 87116; 87205; 87206; 88108; 88305; 88341; 88342; 89050; 93005; 93306; 99285

== ENCOUNTER 2020-04-26 08:37 | Day surgery (SDC) | payer MEDICARE, OTHER ==
[2020-04-26 09:25] VITALS: TEMP 98.2
[2020-04-26 09:36] LABS: Mean Platelet Volume 8.3; Platelet Count 551 k/uL (150-450)
[2020-04-26 09:46] LABS: INR 0.9 (<1.2); Prothrombin Time 9.9 sec (9.0-12.0)
[2020-04-26 09:58] LABS: Glucose,Whole Blood 92 mg/dL (75-99)
[2020-04-26 10:47] VITALS: RESP 16
[2020-04-26 11:07] VITALS: BP 131/83; PULSE 85
--- NOTE | 2020-04-26 11:23 | XR ---
EXAMINATION TYPE: XR chest 1V DATE OF EXAM: 04/26/2020 COMPARISON: 04/11/2020 HISTORY: Post left thoracentesis TECHNIQUE: Single frontal view of the chest is obtained. FINDINGS: Large left pleural effusion and consolidation. Right lung clear. No sizable pneumothorax. Heart size stable. IMPRESSION: Large left-sided pleural effusion and consolidation with no sizable pneumothorax
--- NOTE | 2020-04-26 17:19 | US ---
EXAMINATION TYPE: US thoracentesis DATE OF EXAM: 04/26/2020 COMPARISON: NONE HISTORY: Pleural effusion. LEMON GROWER: Dr. Mai Brush PROCEDURE: The procedure was discussed with the patient. The risks, complications, benefits, and alternatives we re discussed and any questions were answered. Informed consent was obtained. Preprocedure preliminary imaging demonstrated large left pleural effusion. Maximal barrier technique was utilized. The skin overlying a suitable pocket of fluid of the left sud[address] st was localized and the overlying skin prepped and draped. Lidocaine was used for local anesthesia. Ultrasound was used with sterile technique. A 5FR 10 cm one-step centesis catheter was advanced into the pleural fluid collection using ultrasound guidance. Approximately 1.2 liter(s) of serous fluid wa s removed. Catheter was withdrawn and hemostasis achieved. A sterile bandage was applied. Postprocedure imaging demonstrated moderate residual pleural effusion. There is no immediate complica tion. The patient was discharged in stable condition without complication. IMPRESSION: 1. Status post ultrasound-guided left thoracentesis, with removal of 1.2 L of clear serous fluid. 2. Postprocedure chest x-ray pending.
== END 2020-04-26 11:30 | disposition home or self-care (01) ==
LOC: RADPROMAIN 08:37
PROVIDERS: ATTEND Internal Medicine Critical Care Medicine
DX: J90 Pleural effusion, not elsewhere classified (principal); J44.9 Chronic obstructive pulmonary disease, unspecified; E11.9 Type 2 diabetes mellitus without complications; E66.01 Morbid (severe) obesity due to excess calories; Z68.26 Body mass index [BMI] 26.0-26.9, adult; Z79.899 Other long term (current) drug therapy; Z79.51 Long term (current) use of inhaled steroids; Z85.3 Personal history of malignant neoplasm of breast; Z90.13 Acquired absence of bilateral breasts and nipples; Z98.890 Other specified postprocedural states
CPT/HCPCS: 32555; 36415; 71045; 85049; 85610

== ENCOUNTER 2020-05-16 12:29 | Day surgery (SDC) | payer MEDICARE, OTHER ==
[2020-05-16 12:57] LABS: Mean Platelet Volume 8.1; Platelet Count 372 k/uL (150-450)
[2020-05-16 12:58] VITALS: TEMP 98.4
[2020-05-16 13:03] LABS: Prothrombin Time 10.1 sec (9.0-12.0)
[2020-05-16 14:30] VITALS: RESP 16
[2020-05-16 14:43] VITALS: PULSE 85
[2020-05-16 15:05] VITALS: BP 122/87
--- NOTE | 2020-05-16 15:08 | XR ---
EXAMINATION TYPE: XR chest 1V DATE OF EXAM: 05/16/2020 CLINICAL HISTORY: Post left thoracentesis TECHNIQUE: Frontal view of the chest obtained COMPARISON: Chest radiograph 05/08/2020, 04/26/2020, 04/11/2020, 04/10/2020. FINDINGS: Persistent large left pleural effusion, mildly decreased in size versus 05/08/2020. No pneu mothorax is seen status post left thoracentesis. The cardiac silhouette is obscured due to pleural ef fusion. The visualized sternal silhouette and pulmonary vasculature are unchanged. IMPRESSION: Persistent large left pleural effusion, mildly decreased in size status post left thoracentesis. No p neumothorax.
--- NOTE | 2020-05-16 15:38 | US ---
EXAMINATION TYPE: US thoracentesis DATE OF EXAM: 05/16/2020 COMPARISON: Chest radiograph 05/08/2020. Ultrasound thoracentesis 04/26/2020. HISTORY: Left pleural effusion. MERCHANDISE FLOW TEAM LEADER: Dr. Mai Brush PROCEDURE: The procedure was discussed with the patient. The risks, complications, benefits, and alternatives we re discussed and any questions were answered. Informed consent was obtained. Preprocedure preliminary imaging demonstrated large volume left pleural effusion. Maximal barrier technique was utilized. The skin overlying a suitable pocket of fluid of the left su[address] st was localized and the overlying skin prepped and draped. Lidocaine was used for local anesthesia. Ultrasound was used with sterile technique. A 5FR 10 cm ons-step centesis catheter was advanced into the pleural fluid collection using ultrasound guidance. Approximately 1.2 liter(s) of serous fluid wa s removed. Catheter was withdrawn and hemostasis achieved. A sterile bandage was applied. Postprocedure imaging demonstrated large volume residual pleural effusion. There is no immediate comp lication. The patient was discharged in stable condition without complication. Postprocedure x-ray pe nding. IMPRESSION: 1. Status post ultrasound-guided left thoracentesis, with removal of 1.2 L of clear serous fluid. 2. Due to difficulty draining the superior aspect of the left pleural effusion and large volume resid ual fluid, recommend correlation with CT scan of the chest.
== END 2020-05-16 15:06 | disposition home or self-care (01) ==
LOC: RADPROMAIN 12:29
PROVIDERS: ATTEND Internal Medicine Critical Care Medicine
DX: J90 Pleural effusion, not elsewhere classified (principal)
CPT/HCPCS: 32555; 36415; 71045; 82947; 85049; 85610; 88108; 88305; 88341; 88342

== ENCOUNTER 2020-06-04 08:45 | Day surgery (SDC) | payer MEDICARE, OTHER ==
[2020-06-04 09:28] LABS: Mean Platelet Volume 8.1; Platelet Count 367 k/uL (150-450)
[2020-06-04 09:33] LABS: Prothrombin Time 10.3 sec (9.0-12.0)
[2020-06-04 10:13] VITALS: RESP 18; TEMP 98.1
--- NOTE | 2020-06-04 10:58 | XR ---
EXAMINATION TYPE: XR chest 1V portable DATE OF EXAM: 06/04/2020 Comparison: 05/16/2020 Clinical History: 55-year-old female post thoracentesis- pt ready in [address] please Findings: Left heart margin obscured by adjacent pleural parenchymal opacity. There is a moderate to large left pleural effusion with a adjacent opacity. Right lung and pleural space are relatively clear. Impression: Moderate to large left pleural effusion with underlying atelectasis and/or consolidation, increased s lightly from 05/16/2020. No appreciable pneumothorax.
--- NOTE | 2020-06-04 11:19 | US ---
Ultrasound-guided therapeutic and diagnostic thoracentesis DATE OF EXAM: 06/04/2020 CLINICAL HISTORY: Left pleural effusion The procedure was discussed with the patient. The risks, complications, benefits, and alternatives we re discussed and any questions were answered. Informed consent was obtained. The patient was placed supine on the ultrasound table and prepped and draped in the usual sterile fas hion. All elements of maximal barrier and sterile technique were utilized. Under ultrasound guidance, access into the pleural space was obtained, via the thoracentesis catheter system and direct ultrasound guidance. Ap proximately 1.0 liters of straw-colored fluid was removed. Sample sent to pathology for analysis. The patient was stable throughout the procedure and remained stable upon discharge from Department of Radiology. IMPRESSION: 1. Successful therapeutic and diagnostic thoracentesis under ultrasound guidance.
[2020-06-04 11:21] VITALS: BP 109/83; PULSE 90
[2020-06-04 17:45] LABS: Appearance,BF Clear; Color,BF Yellow; Nucleated Cells, Body Fluid 555 /uL; RBC, Body Fluid 575 /uL
[2020-06-04 17:46] LABS: Mononuclear WBC,Body Fluid 100 %; Total Cells Counted,Body Fluid 100
[2020-06-05 04:32] LABS: Total Protein, Body Fluid 3300 mg/dL
[2020-06-05 04:50] LABS: Glucose, BF Source Pleural Fluid; Glucose, Body Fluid 104 mg/dL; LDH, Body Fluid Source Pleural Fluid
== END 2020-06-04 11:22 | disposition home or self-care (01) ==
LOC: RADPROMAIN 08:45
PROVIDERS: ATTEND Internal Medicine Critical Care Medicine
DX: J90 Pleural effusion, not elsewhere classified (principal); R91.8 Other nonspecific abnormal finding of lung field
CPT/HCPCS: 32555; 36415; 71045; 82945; 82947; 83615; 84157; 85049; 85610; 87070; 87075; 87116; 87205; 87206; 88108; 88305; 89050

== ENCOUNTER 2020-06-26 08:47 | Day surgery (SDC) | payer MEDICARE, OTHER ==
[2020-06-26 09:22] VITALS: TEMP 98.9
[2020-06-26 09:22] LABS: Mean Platelet Volume 8.1; Platelet Count 388 k/uL (150-450)
[2020-06-26 11:06] LABS: Glucose,Whole Blood 123 mg/dL (75-99)
[2020-06-26 11:12] VITALS: RESP 16
--- NOTE | 2020-06-26 11:26 | XR ---
EXAMINATION TYPE: XR chest 1V portable DATE OF EXAM: 06/26/2020 HISTORY: Left-sided thoracentesis. COMPARISON: 06/04/2020 TECHNIQUE: Single view of the chest is submitted. FINDINGS: No evidence for left-sided pneumothorax. Large left sided opacity which may reflect a combination of effusion, atelectasis and/or infiltrate is again noted. The heart is stable. Hilar and mediastinal structures are within normal limits. Degenerative changes are seen of the dorsal spine. IMPRESSION: 1. No evidence for left-sided pneumothorax.
[2020-06-26 12:01] VITALS: BP 114/83; PULSE 81
--- NOTE | 2020-06-26 16:19 | US ---
EXAMINATION TYPE: US thoracentesis DATE OF EXAM: 06/26/2020 COMPARISON: Ultrasound thoracentesis 06/04/2020 HISTORY: Left pleural effusion. TANK TRUCK MECHANIC: Dr. Mai Brush PROCEDURE: The procedure was discussed with the patient. The risks, complications, benefits, and alternatives we re discussed and any questions were answered. Informed consent was obtained. Preprocedure preliminary imaging demonstrated large left pleural effusion. Maximal barrier technique was utilized. The skin overlying a suitable pocket of fluid of the left su[address] st was localized and the overlying skin prepped and draped. Lidocaine was used for local anesthesia. Ultrasound was used with sterile technique. A 5FR 10 cm one-step centesis catheter was advanced into the pleural fluid collection using ultrasound guidance. Approximately 1.25 liter(s) of serous fluid w as removed. Catheter was withdrawn and hemostasis achieved. A sterile bandage was applied. Postprocedure imaging demonstrated decreased size of residual pleural effusion. After procedure patie nt became hypotensive and was placed in reverse Trendelenburg and IV saline bolus was administered. B lood pressure normalized. The patient was discharged in stable condition. IMPRESSION: 1. Status post ultrasound-guided left thoracentesis, with removal of 1.25 L of clear serous fluid. 2. Postprocedure chest x-ray pending.
== END 2020-06-26 12:00 | disposition home or self-care (01) ==
LOC: RADPROMAIN 08:47
PROVIDERS: ATTEND Internal Medicine Critical Care Medicine
DX: J90 Pleural effusion, not elsewhere classified (principal)
CPT/HCPCS: 32555; 36415; 71045; 82947; 85049; 85610

== ENCOUNTER 2020-08-08 08:48 | Day surgery (SDC) | payer MEDICARE, OTHER ==
[2020-08-08 09:37] VITALS: BP 147/81; PULSE 99; RESP 16; TEMP 98.2
--- NOTE | 2020-08-08 17:14 | US ---
EXAMINATION TYPE: US discontinued thoracentesis DATE OF EXAM: 08/08/2020 COMPARISON: Ultrasound thoracentesis 06/26/2020, 06/04/2020, 05/16/2020 HISTORY: Pleural effusion. CAMPUS SECURITY DIRECTOR: Dr. Mai Brush PROCEDURE: Preprocedure preliminary ultrasound imaging demonstrates a 5 cm pocket of left pleural effusion. Valorie ent previously demonstrated 11 cm pocket on 06/26/2020, 8 cm pocket on 06/04/2020, and 11 cm pocket on 05/16/2020. Patient reported feeling well, without significant shortness of breath at this time. Due to feeling w ell, and decreased size of left pleural effusion fluid pocket versus several recent comparison exams, patient requested to postpone/cancel left thoracentesis at this time. I am in agreement with plan an d patient request. IMPRESSION: 1. Canceled thoracentesis procedure. 2. Decreased size of left pleural effusion fluid pocket versus several recent comparison examinations , as above.
== END 2020-08-08 09:44 | disposition home or self-care (01) ==
LOC: RADPROMAIN 08:48
PROVIDERS: ATTEND Internal Medicine Critical Care Medicine
DX: J90 Pleural effusion, not elsewhere classified (principal); Z53.09 Procedure and treatment not carried out because of other contraindication
CPT/HCPCS: 76604

== ENCOUNTER 2020-08-22 08:45 | Day surgery (SDC) | payer MEDICARE, OTHER ==
[2020-08-22 08:58] VITALS: RESP 16
[2020-08-22 08:59] VITALS: TEMP 97.8
[2020-08-22 09:29] LABS: Mean Platelet Volume 7.8; Platelet Count 292 k/uL (150-450)
[2020-08-22 09:36] LABS: Prothrombin Time 10.1 sec (9.0-12.0)
--- NOTE | 2020-08-22 10:34 | XR ---
EXAMINATION TYPE: XR chest 1V portable DATE OF EXAM: 08/22/2020 COMPARISON: 06/26/2020 HISTORY: Postthoracentesis TECHNIQUE: Single frontal view of the chest is obtained. FINDINGS: There is a small left hydropneumothorax. Trapped lung in the differential diagnosis. Right lung is clear. No mediastinal deviation. Persistent large area of consolidation and pleural effusion . This is improved from the prior exam.. IMPRESSION: 1. Interval improvement in amount of pleural fluid, however, there appears to be a small left-sided h ydropneumothorax. Differential diagnosis would include a trapped lung.
--- NOTE | 2020-08-22 10:47 | US ---
Ultrasound-guided therapeutic and diagnostic thoracentesis DATE OF EXAM: 08/22/2020 CLINICAL HISTORY: Left pleural effusion The procedure was discussed with the patient. The risks, complications, benefits, and alternatives we re discussed and any questions were answered. Informed consent was obtained. The patient was placed supine on the ultrasound table and prepped and draped in the usual sterile fas hion. All elements of maximal barrier and sterile technique were utilized. Under ultrasound guidance, access into the pleural space was obtained, via the thoracentesis catheter system and direct ultrasound guidance. A pproximately 0.75 liters of straw-colored fluid was removed. The patient was stable throughout the procedure and remained stable upon discharge from Department of Radiology. IMPRESSION: 1. Successful therapeutic and diagnostic thoracentesis under ultrasound guidance.
[2020-08-22 11:22] VITALS: BP 132/73; PULSE 81
--- NOTE | 2020-08-22 11:33 | XR ---
EXAMINATION TYPE: XR chest 1V DATE OF EXAM: 08/22/2020 COMPARISON: NONE HISTORY: Post left thoracentesis TECHNIQUE: Single frontal view of the chest is obtained. FINDINGS: Overall the amount of fluid is reduced from the prior exam of 07/27/2020. There does remai n a stable appearing small left hydropneumothorax. Trapped lung is in the differential diagnosis give n the appearance of the multiple prior chest x-rays. There is no mediastinal deviation. The patient i s asymptomatic. The patient has declined to stay for additional imaging retreatment. IMPRESSION: 1. Small left hydropneumothorax unchanged from the prior exam.
== END 2020-08-22 11:30 | disposition home or self-care (01) ==
LOC: RADPROMAIN 08:45
PROVIDERS: ATTEND Internal Medicine Critical Care Medicine
DX: J90 Pleural effusion, not elsewhere classified (principal); J94.8 Other specified pleural conditions
CPT/HCPCS: 32555; 36415; 71045; 85049; 85610

== ENCOUNTER 2022-12-14 18:16 | Emergency (ER) | payer MEDICARE, OTHER ==
[2022-12-14] MEDS ORDERED: SODIUM CHLORIDE 0.9% 500 ML 500 ML IV STA (18:44)
[2022-12-14] MEDS ORDERED: SODIUM CHLORIDE 0.9% 1,000 ML IV STA (18:44)
--- NOTE | 2022-12-14 19:16 | ED ---
Dizziness HPI - General Chief Complaint: Dizziness Stated Complaint: Dizziness,Syncope Time Seen by Provider: 12/14/22 18:44 Source: patient, RN notes reviewed, old records reviewed Mode of arrival: ambulatory Limitations: no limitations - History of Present Illness Initial Comments: This is a 57-year-old female here today for evaluation of dizziness throughout the day but main presentation is for a couple event that occurred last night before going to bed. Patient was at home getting into bed with syncopal event happened she denies any symptoms prior to the syncopal event but does admit to headache currently. Patient was seen in urgent care and then sent to the emergency department for further evaluation. Patient has no nausea vomiting diarrhea, no shortness of breath or chest pain patient has no recent travel history sick contacts history of breast cancer no history of blood clots. Patient denies any current complaints blood sugar has been normal and repeat testing today does suffer from diabetes. MD Complaint: dizziness, lightheadedness, near syncope (A she did have a syncopal event last night) -: hour(s) Timing: gradual onset Description: near-syncope (Patient Jacobs passed out last night) History of Same: No History of Trauma: No Severity: mild Improves With: nothing Worsens With: nothing Associated Symptoms: syncope - Related Data Home Medications Medication Instructions Recorded Confirmed Albuterol Sulfate [Ventolin HFA] 2 puff INHALATION RT-Q4H PRN 04/10/20 08/22/20 Atorvastatin Calcium [Lipitor] 20 mg PO HS 04/10/20 08/22/20 Citalopram Hydrobromide [CeleXA] 20 mg PO HS 04/10/20 08/22/20 Ergocalciferol (Vitamin D2) 50,000 unit PO MAXWELL 04/10/20 08/22/20 [Drisdol (50,000 Iu)] Insulin Detemir (Levemir) [Levemir] 80 unit SQ HS 04/10/20 08/22/20 Ipratropium/Albuter 20-100Mcg 1 puff INHALATION RT-QID PRN 04/10/20 08/22/20 [Combivent Respimat 20-100Mcg Inhaler] Nystatin 100,000 Unit/gm Oint 1 applic TOPICAL TID PRN 04/10/20 08/22/20 [Mycostatin Oint] Omeprazole 20 mg PO HS 04/10/20 08/22/20 Triamcinolone 0.1% Cream [Kenalog 1 applicatio TOPICAL TID PRN 04/10/20 08/22/20 0.1% Cream] diazePAM [Valium] 5 mg PO HS PRN 04/10/20 08/22/20 lisinopriL [Prinivil] 10 mg PO HS 04/10/20 08/22/20 metFORMIN HCL [Glucophage] 1,000 mg PO DAILY 04/10/20 08/22/20 Acetaminophen Tab [Tylenol Tab] 1,000 mg PO Q6HR PRN 05/16/20 08/22/20 Non Formulary Drug 100 mg IM DAILY 07/17/20 08/22/20 Palbociclib [Ibrance] 100 mg PO DAILY 07/17/20 08/22/20 Allergies Allergy/AdvReac Type Severity Reaction Status Date / Time No Known Allergies Allergy Verified 12/14/22 18:38 Review of Systems ROS Statement: Those systems with pertinent positive or pertinent negative responses have been documented in the HPI. ROS Other: All systems not noted in ROS Statement are negative. Past Medical History Past Medical History: Cancer, COPD, Diabetes Mellitus Additional Past Medical History / Comment(s): lymphedema, breast cancer with mets History of Any Multi-Drug Resistant Organisms: None Reported Additional Past Surgical History / Comment(s): bilateral mastectomy, Left thoracentesis multiple Past Anesthesia/Blood Transfusion Reactions: No Reported Reaction Past Psychological History: Anxiety, Panic Disorder Smoking Status: Former smoker Past Alcohol Use History: None Reported Past Drug Use History: Marijuana General Exam Limitations: no limitations General appearance: alert, in no apparent distress Head exam: Present: atraumatic, normocephalic, normal inspection Eye exam: Present: normal appearance, PERRL, EOMI. Absent: scleral icterus, conjunctival injection, periorbital swelling ENT exam: Present: normal exam, mucous membranes moist Neck exam: Present: normal inspection. Absent: tenderness, meningismus, lymphadenopathy Respiratory exam: Present: normal lung sounds bilaterally. Absent: respiratory distress, wheezes, rales, rhonchi, stridor Cardiovascular Exam: Present: regular rate, normal rhythm, normal heart sounds. Absent: systolic murmur, diastolic murmur, rubs, gallop, clicks GI/Abdominal exam: Present: soft, normal bowel sounds. Absent: distended, tenderness, guarding, rebound, rigid Extremities exam: Present: normal inspection, full ROM, normal capillary refill. Absent: tenderness, pedal edema, joint swelling, calf tenderness Back exam: Present: normal inspection Neurological exam: Present: alert, oriented X3, CN II-XII intact Psychiatric exam: Present: normal affect, normal mood Skin exam: Present: warm, dry, intact, normal color. Absent: rash Course Vital Signs 12/14/22 12/14/22 12/14/22 18:35 18:47 21:00 Temperature 98.3 F 98.0 F 98.6 F Pulse Rate 71 73 72 Respiratory 20 16 Rate Blood Pressure 150/84 122/69 129/87 O2 Sat by Pulse 99 97 97 Oximetry - Reevaluation(s) Reevaluation #1: 12/14/22 19:16 Medical records reviewed Reevaluation #2: 12/14/22 19:16 No change in symptoms here in the ER Reevaluation #3: Patient informed results and questions answered feels comfortable with discharge Reevaluation #4: 12/14/22 19:16 Was pt. sent in by a medical professional or institution? @ -no Did you speak to anyone other than the patient for history? @ -no Did you review nursing and triage notes? @ -agree Were old charts reviewed? @ -yes Differential Diagnosis? @ -no EKG interpreted by me (3pts min.)? @ -no X-rays interpreted by me (1pt min.)? @ -no CT interpreted by me (1pt min.)? @ -no U/S interpreted by me (1pt. min.)? @ -no What testing was considered but not performed? (CT, X-rays, U/S, labs)? Why? @ -no What meds were considered but not given? Why? @ -no Did you discuss the management of the patient with other professionals? @ -no Did you reconcile home meds? @ -no Was smoking cessation discussed for >3mins.? @ -no Was critical care preformed (if so, how long)? @ -no Were there social determinants of health that impacted care today? How? (Homelessness, low income, unemployed, alcoholism, drug addiction, transportation, low edu. Level, literacy, decrease access to med. care, [facility], rehab)? @ -no Was there de-escalation of care discussed even if they declined? (Discuss DNR or withdrawal of care, Hospice)? @ -no What co-morbidities impacted this encounter? (DM, HTN, Smoking, COPD, CAD, Cancer, CVA, Hep., AIDS, mental health diagnosis, sleep apnea, morbid obesity)? @ -no Was patient admitted / discharged? @ -dc Undiagnosed new problem with uncertain prognosis? @ -no Drug Therapy requiring intensive monitoring for toxicity (Heparin, Nitro, Insulin, Cardizem)? @ -no Were any procedures done? @ -no Diagnosis/symptom? @ -no Acute, or Chronic, or Acute on Chronic? @ -no Uncomplicated (without systemic symptoms) or Complicated (systemic symptoms)? @ -no Side effects of treatment? @ -no Exacerbation, Progression, or Severe Exacerbation] @ -no Poses a threat to life or bodily function? @ -no Reevaluation #5: 12/14/22 19:16 Differential Dizziness: Benign paroxysmal positional Vertigo, Menieres disease, otitis media, acoustic neuroma, vertebrobasilar insufficiency, cerebellar stroke, encephalitis, hypovolemic, arrhythmia, coronary artery syndrome, anemia, this is not meant to be an all-inclusive list EKG Findings - EKG Comments: EKG Findings:: EKG shows NSR 74 TN 170 QRS QTc 412 Medical Decision Making - Medical Decision Making 57 female DF for evaluation patient presents today for evaluation regards to dizziness sent from urgent care for evaluation, no recurrent syncope here in the ER patient feels well and can be discharged home - Lab Data Result diagrams: 12/14/22 19:11 12/14/22 19:11 Lab Results 12/14/22 12/14/22 12/14/22 Range/Units 19:11 19:11 19:11 WBC 3.7 L (3.8-10.6) k/uL RBC 3.30 L (3.80-5.40) m/uL Hgb 11.6 (11.4-16.0) gm/dL Hct 33.9 L (34.0-46.0) % MCV 102.6 H (80.0-100.0) fL MCH 35.2 H (25.0-35.0) pg MCHC 34.3 (31.0-37.0) g/dL RDW 14.3 (11.5-15.5) % Plt Count 160 (150-450) k/uL MPV 9.1 Neutrophils % 41 % Lymphocytes % 44 % Monocytes % 6 % Eosinophils % 4 % Basophils % 1 % Neutrophils # 1.5 (1.3-7.7) k/uL Lymphocytes # 1.6 (1.0-4.8) k/uL Monocytes # 0.2 (0-1.0) k/uL Eosinophils # 0.1 (0-0.7) k/uL Basophils # 0.0 (0-0.2) k/uL Macrocytosis Slight PT 9.6 (9.0-12.0) sec INR 0.9 (<1.2) APTT 20.1 L (22.0-30.0) sec D-Dimer 0.57 (<0.60) mg/L FEU Sodium 137 (137-145) mmol/L Potassium 4.6 (3.5-5.1) mmol/L Chloride 104 (98-107) mmol/L Carbon Dioxide 29 (22-30) mmol/L Anion Gap 4 mmol/L BUN 15 (7-17) mg/dL Creatinine 0.72 (0.52-1.04) mg/dL Est GFR (CKD-EPI)AfAm >90 (>60 ml/min/1.73 sqM) Est GFR (CKD-EPI)NonAf >90 (>60 ml/min/1.73 sqM) Glucose 141 H (74-99) mg/dL Plasma Lactic Acid Lokesh (0.7-2.0) mmol/L Calcium 10.2 (8.4-10.2) mg/dL Total Bilirubin 0.2 (0.2-1.3) mg/dL AST 18 (14-36) U/L ALT 17 (4-34) U/L Alkaline Phosphatase 104 (38-126) U/L Troponin I (0.000-0.034) ng/mL NT-Pro-B Natriuret Pep pg/mL Total Protein 7.1 (6.3-8.2) g/dL Albumin 3.9 (3.5-5.0) g/dL 12/14/22 12/14/22 12/14/22 Range/Units 19:11 19:11 19:11 WBC (3.8-10.6) k/uL RBC (3.80-5.40) m/uL Hgb (11.4-16.0) gm/dL Hct (34.0-46.0) % MCV (80.0-100.0) fL MCH (25.0-35.0) pg MCHC (31.0-37.0) g/dL RDW (11.5-15.5) % Plt Count (150-450) k/uL MPV Neutrophils % % Lymphocytes % % Monocytes % % Eosinophils % % Basophils % % Neutrophils # (1.3-7.7) k/uL Lymphocytes # (1.0-4.8) k/uL Monocytes # (0-1.0) k/uL Eosinophils # (0-0.7) k/uL Basophils # (0-0.2) k/uL Macrocytosis PT (9.0-12.0) sec INR (<1.2) APTT (22.0-30.0) sec D-Dimer (<0.60) mg/L FEU Sodium (137-145) mmol/L Potassium (3.5-5.1) mmol/L Chloride (98-107) mmol/L Carbon Dioxide (22-30) mmol/L Anion Gap mmol/L BUN (7-17) mg/dL Creatinine (0.52-1.04) mg/dL Est GFR (CKD-EPI)AfAm (>60 ml/min/1.73 sqM) Est GFR (CKD-EPI)NonAf (>60 ml/min/1.73 sqM) Glucose (74-99) mg/dL Plasma Lactic Acid Lokesh 1.0 (0.7-2.0) mmol/L Calcium (8.4-10.2) mg/dL Total Bilirubin (0.2-1.3) mg/dL AST (14-36) U/L ALT (4-34) U/L Alkaline Phosphatase (38-126) U/L Troponin I <0.012 (0.000-0.034) ng/mL NT-Pro-B Natriuret Pep 103 pg/mL Total Protein (6.3-8.2) g/dL Albumin (3.5-5.0) g/dL - Radiology Data Radiology results: report reviewed (CT brain negative for acute disease), image reviewed Disposition Clinical Impression: Syncope Disposition: HOME SELF-CARE Condition: Good Instructions (If sedation given, give patient instructions): Syncope (ED) Is patient prescribed a controlled substance at d/c from ED?: No Referrals: Wendy Bishop MD [Primary Care Provider] - 1-2 days Time of Disposition: 20:50
[2022-12-14 19:27] LABS: ALT 17 U/L (4-34); AST 18 U/L (14-36); African American GFR (CKD) >90 (>60 ml/min/1.73 sqM); Albumin 3.9 g/dL (3.5-5.0); Alkaline Phosphatase 104 U/L (38-126); Anion Gap 4 mmol/L; Blood Urea Nitrogen 15 mg/dL (7-17); Calcium 10.2 mg/dL (8.4-10.2); Carbon Dioxide 29 mmol/L (22-30); Chloride 104 mmol/L (98-107); Glucose 141 mg/dL (74-99); Non-African American GFR(CKD) >90 (>60 ml/min/1.73 sqM); Potassium 4.6 mmol/L (3.5-5.1); Sodium 137 mmol/L (137-145); Total Bilirubin 0.2 mg/dL (0.2-1.3); Total Protein 7.1 g/dL (6.3-8.2)
[2022-12-14 19:31] LABS: Basophils % (A) 1 %; Eosinophils # (A) 0.1 k/uL (0-0.7); Eosinophils % (A) 4 %; HCT 33.9 % (34.0-46.0); HGB 11.6 gm/dL (11.4-16.0); Lymphocytes # (A) 1.6 k/uL (1.0-4.8); Lymphocytes % (A) 44 %; MCH 35.2 pg (25.0-35.0); MCHC 34.3 g/dL (31.0-37.0); MCV 102.6 fL (80.0-100.0); Macrocytosis Slight; Mean Platelet Volume 9.1; Monocytes # (A) 0.2 k/uL (0-1.0); Monocytes % (A) 6 %; Neutrophils # (A) 1.5 k/uL (1.3-7.7); Neutrophils % (A) 41 %; Platelet Count 160 k/uL (150-450); RDW 14.3 % (11.5-15.5); WBC 3.7 k/uL (3.8-10.6)
[2022-12-14 19:37] LABS: INR 0.9 (<1.2); Prothrombin Time 9.6 sec (9.0-12.0)
[2022-12-14 19:45] LABS: Partial Thromboplastin Time 20.1 sec (22.0-30.0)
--- NOTE | 2022-12-14 20:48 | CT ---
EXAMINATION TYPE: CT brain wo con CT DLP: 1165.4 mGycm, Automated exposure control for dose reduction was used. DATE OF EXAM: 12/14/2022 7:43 PM COMPARISON: No relevant priors. CLINICAL INDICATION:Female, 57 years old with history of kapoor, headache and dizziness. TECHNIQUE: Brain: Axial CT images of the brain were obtained with coronal and sagittal reformats created and rev iewed. Contrast used: None. Oral contrast used: None. FINDINGS: Brain: Extra-axial spaces: No abnormal extra-axial fluid collections. Ventricular system: Within normal limits Cerebral parenchyma: No acute intraparenchymal hemorrhage or mass effect. The das-white junction is well differentiated. Cerebellum: Unremarkable. Mass effect: No evidence of midline shift. Intracranial vasculature: unremarkable Soft tissues: Partially calcified left scalp lesion, likely sebaceous cysts. Calvarium/osseous structures: No depressed skull fracture. Paranasal sinuses and mastoid air cells: Mild scattered paranasal sinus disease.. Mastoid air cells a re Clear Visualized orbits: Right lens is absent. IMPRESSION: 1. No acute intracranial process. 2. Mild paranasal sinus disease.
[2022-12-14 21:01] VITALS: BP 129/87; PULSE 72; RESP 16; TEMP 98.6
== END 2022-12-14 21:15 | disposition home or self-care (01) ==
LOC: EC 18:16
DX: R55 Syncope and collapse (principal); E11.9 Type 2 diabetes mellitus without complications; J44.9 Chronic obstructive pulmonary disease, unspecified; F41.9 Anxiety disorder, unspecified; F12.90 Cannabis use, unspecified, uncomplicated; Z87.891 Personal history of nicotine dependence; Z79.84 Long term (current) use of oral hypoglycemic drugs; Z79.899 Other long term (current) drug therapy
CPT/HCPCS: 36415; 70450; 80053; 83605; 83880; 84484; 85025; 85379; 85610; 85730; 93005; 96360; 96361; 99284